=== PATIENT | female | born 1965 | race Caucasian/White ===

== ENCOUNTER 2017-11-01 04:04 | Emergency (ER) | payer OTHER ==
[2017-11-01] MEDS ORDERED: MAG HYDROX/AL HYDROX/SIMETH 30 ML UDCUP PO ONE (04:22)
[2017-11-01] MEDS ORDERED: LIDOCAINE 2% VISCOUS 15 ML UDCUP PO ONE (04:22)
--- NOTE | 2017-11-01 04:22 | EDPHY ---
H & P HPI/ROS: Chief Complaint: Chest pain HPI: 52-year-old woman woke with substernal and epigastric chest pain at 2:30 a.m. this morning. Pain at worst is about a 3 to 4/10. There been no aggravating or alleviating factors. Described as a tightness. She has never had this before. His no recent fevers or chills. No cough. No shortness of breath. No nausea or vomiting. She has not have any risk factors for coronary artery disease. She does state that she might be a have a Lucille Danlos. She has not describe a tearing sensation. Is not a severe pain. She did take an aspirin [facility] ROS: 10 point Review of Systems is negative except as noted in the HPI. Social History: No smoking, no alcohol, no recreational drug use Family History: No family history of coronary artery disease Physical Exam: Gen: Awake, Alert, No Distress HEENT: Nose: no rhinorrhea Eyes: PERRLA, EOMI Mouth: Moist mucosa Neck: Supple, no JVD Chest: nontender, lungs clear to auscultation Heart: S1, S2 normal, no murmur Abd: Soft, non-tender, no guarding Back: no CVA tenderness, no midline tenderness Ext: no edema, non-tender Skin: no rash Neuro: CN II-XII intact, Sensation grossly intact, Strength 5/5 in bilateral upper and lower extremities - Personal History Tetanus Vaccine Date: <10 YRS Constitutional: Initial Vital Signs Temperature (C) 36.9 C 11/01/17 04:19 Heart Rate 65 11/01/17 04:19 Respiratory Rate 16 11/01/17 04:19 Blood Pressure 120/83 H 11/01/17 04:19 O2 Sat (%) 98 11/01/17 04:19 O2 Delivery Mode Room Air Allergies/Adverse Reactions: Penicillins Allergy (Verified 11/04/11 12:13) generalized swelling Sulfa (Sulfonamide Antibiotics) Allergy (Verified 11/04/11 12:13) n/v Home Medications: Medication Instructions Recorded GARLAND GILBERT 05/10/11 Medical Decision Making - Diagnostics EKG Interpretation: ECG time 4:16 a.m., sinus rhythm with a rate of 55, normal axis, normal intervals, no acute ST or T-wave changes. Impression: Normal ECG. Imaging Results: Chest x-ray is negative per my interpretation. Imaging: I viewed and interpreted images myself ED Course/Re-evaluation: 52-year-old woman presenting with substernal chest pain which woke her this morning. ECG is negative. Troponin is negative. Chest x-ray is negative. She is still having 3/10 pain with no relief from a GI cocktail or nitroglycerin. She is refusing morphine or other narcotics at this time. Will admit for low risk chest pain rule out and serial troponins. - Data Points Laboratory Results: Laboratory Results 11/01/17 04:20 11/01/17 04:20 11/01/17 11/01/17 04:20 04:20 WBC 6.10 10^3/uL 10^3/uL (3.80-9.50) RBC 4.99 10^6/uL 10^6/uL (4.18-5.33) Hgb 14.8 g/dL g/dL (12.6-16.3) Hct 44.2 % % (38.0-47.0) MCV 88.6 fL fL (81.5-99.8) MCH 29.7 pg pg (27.9-34.1) MCHC 33.5 g/dL g/dL (32.4-36.7) RDW 12.7 % % (11.5-15.2) Plt Count 280 10^3/uL 10^3/uL (150-400) MPV 9.8 fL fL (8.7-11.7) Neut % (Auto) 39.6 % % (39.3-74.2) Lymph % (Auto) 41.3 % % (15.0-45.0) Lane % (Auto) 9.2 % % (4.5-13.0) Eos % (Auto) 8.7 % H % (0.6-7.6) Baso % (Auto) 1.0 % % (0.3-1.7) Nucleat RBC Rel Count 0.0 % % (0.0-0.2) Absolute Neuts (auto) 2.42 10^3/uL 10^3/uL (1.70-6.50) Absolute Lymphs (auto) 2.52 10^3/uL 10^3/uL (1.00-3.00) Absolute Monos (auto) 0.56 10^3/uL 10^3/uL (0.30-0.80) Absolute Eos (auto) 0.53 10^3/uL H 10^3/uL (0.03-0.40) Absolute Basos (auto) 0.06 10^3/uL 10^3/uL (0.02-0.10) Absolute Nucleated RBC 0.00 10^3/uL 10^3/uL (0-0.01) Immature Gran % 0.2 % % (0.0-1.1) Immature Gran # 0.01 10^3/uL 10^3/uL (0.00-0.10) Sodium 142 mEq/L mEq/L (135-145) Potassium 4.3 mEq/L mEq/L (3.5-5.2) Chloride 107 mEq/L mEq/L (97-110) Carbon Dioxide 25 mEq/l mEq/l (22-31) Anion Gap 10 mEq/L mEq/L (8-16) BUN 22 mg/dL mg/dL (7-23) Creatinine 0.9 mg/dL mg/dL (0.6-1.0) Estimated GFR > 60 Glucose 93 mg/dL mg/dL (70-100) Calcium 9.4 mg/dL mg/dL (8.5-10.4) Troponin I < 0.012 ng/mL ng/mL (0.000-0.034) Medications Given: Discontinued Medications Al Hydroxide/Mg Hydroxide (Maalox Susp) 30 ml PO ONCE ONE Stop: 11/01/17 04:23 Last Admin: 11/01/17 04:29 Dose: 30 ml Lidocaine (Lidocaine 2% Viscous) 15 ml PO ONCE ONE Stop: 11/01/17 04:23 Last Admin: 11/01/17 04:29 Dose: 15 ml Morphine Sulfate (Morphine) 4 mg IVP EDNOW ONE Stop: 11/01/17 05:02 Last Admin: 11/01/17 05:06 Dose: Not Given Nitroglycerin (Nitrostat) 0.4 mg SL EDNOW ONE Stop: 11/01/17 04:52 Last Admin: 11/01/17 04:53 Dose: 1 tab Departure - Departure Disposition: [facility] Acute Clinical Impression: Chest pain Condition: Fair Referrals: HARISH BRADY [Primary Care Provider] - As per Instructions
[2017-11-01 04:28] LABS: PLATELET COUNT 280 10^3/uL (150-400)
[2017-11-01] MEDS ORDERED: NITROGLYCERIN 0.4 MG BTL SL ONE (04:51)
[2017-11-01] MEDS ORDERED: ACETAMINOPHEN 325 MG TAB PO PRN (06:22)
[2017-11-01] MEDS ORDERED: ONDANSETRON 4 MG/2 ML VIAL IVP PRN (06:22)
[2017-11-01] MEDS ORDERED: diphenhydrAMINE 25 MG CAP PO PRN (06:33)
[2017-11-01] MEDS ORDERED: LORazepam 0.5 MG TAB PO PRN (06:33)
[2017-11-01] MEDS ORDERED: NS 1,000 ML IV SCH (06:45)
[2017-11-01 09:00] VITALS: BP 103/56; PULSE 63; RESP 17; TEMP 97.5; O2SAT 96
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
== END 2017-11-01 09:00 | disposition home or self-care (01) ==
LOC: UNDOADMOB 05:40
DX: R07.9 Chest pain, unspecified (principal); E03.9 Hypothyroidism, unspecified; K82.8 Other specified diseases of gallbladder
CPT/HCPCS: 71046; 99285; G0378; 84480-90; J2270

== ENCOUNTER 2018-09-04 13:38 | Emergency (ER) | payer OTHER ==
[2018-09-04] MEDS ORDERED: NS 500 ML IV ONE (14:41)
--- NOTE | 2018-09-04 14:51 | EDPHY ---
H & P Stated Complaint: Chest pain Time Seen by Provider: 09/04/18 14:36 HPI/ROS: CHIEF COMPLAINT: Chest tightness HISTORY OF PRESENT ILLNESS: The patient is a 53-year-old female who comes to the emergency department complaining of chest tightness for the last week. She reports having mononucleosis 1 month ago in feeling slightly short of breath associated with that illness. For the last week she has assumed that this was some type of post viral irritation but her symptoms do not seem to be improving. No history of cardiac disease. She does report of history of Lucille -Danlos but states that she does not have the type that causes dissections. No history of pulmonary disease. No fever. It is not worsened by exertion or food. No diaphoresis. No nausea vomiting. Severity: Moderate Modifying factors: None REVIEW OF SYSTEMS: Constitutional: denies: chills, fever, recent illness, recent injury EENTM: denies: blurred vision, double vision, nose congestion Respiratory: denies: cough, shortness of breath Cardiac: See HPI, no lightheadedness or palpitations Gastrointestinal/Abdominal: denies: abdominal pain, diarrhea, nausea, vomiting, blood streaked stools Genitourinary: denies: dysuria, frequency, hematuria, pain Musculoskeletal: denies: joint pain, muscle pain Skin: denies: lesions, rash, jaundice, bruising Neurological: denies: headache, numbness, paresthesia, tingling, dizziness, weakness Hematologic/Lymphatic: denies: blood clots, easy bleeding, easy bruising Immunologic/allergic: denies: HIV/AIDS, transplant 10 systems reviewed and negative except as noted EXAM: GENERAL: Well-appearing, well-nourished and in no acute distress. HEAD: Atraumatic, normocephalic. EYES: Pupils equal round and reactive to light, extraocular movements intact, sclera anicteric, conjunctiva are normal. ENT: TMs normal, nares patent, oropharynx clear without exudates. Moist mucous membranes. NECK: Normal range of motion, supple without lymphadenopathy or JVD. LUNGS: Breath sounds clear to auscultation bilaterally and equal. No wheezes rales or rhonchi. HEART: Regular rate and rhythm without murmurs, rubs or gallops. ABDOMEN: Soft, nontender, normoactive bowel sounds. No guarding, no rebound. No masses appreciated. BACK: No CVA tenderness, no spinal tenderness, step-offs or deformities EXTREMITIES: Normal range of motion, no pitting or edema. No clubbing or cyanosis. NEUROLOGICAL: Cranial nerves II through XII grossly intact. Normal speech, normal gait. 5/5 strength, normal movement in all extremities, normal sensation , normal reflexes PSYCH: Normal mood, normal affect. SKIN: Warm, dry, normal turgor, no visible rashes or lesions. Source: Patient Exam Limitations: No limitations - Personal History LMP (Females 10-55): IUD In Place Current Tetanus/Diphtheria Vaccine: Yes Tetanus Vaccine Date: <10 YRS - Medical/Surgical History Hx Asthma: No Hx Chronic Respiratory Disease: No Hx Diabetes: No Hx Cardiac Disease: No Hx Renal Disease: No Hx Cirrhosis: No Hx Alcoholism: No Hx HIV/AIDS: No Hx Splenectomy or Spleen Trauma: No Other PMH: Hypothyroidism, migraines - Family History Significant Family History: No pertinent family hx - Social History Smoking Status: Never smoked Alcohol Use: Sober Drug Use: None Constitutional: Initial Vital Signs Temperature (C) 36.7 C 09/04/18 13:42 Heart Rate 83 09/04/18 13:42 Respiratory Rate 18 09/04/18 13:42 Blood Pressure 116/63 09/04/18 13:42 O2 Sat (%) 98 09/04/18 13:42 O2 Delivery Mode Room Air Allergies/Adverse Reactions: Penicillins Allergy (Verified 09/04/18 13:45) generalized swelling Sulfa (Sulfonamide Antibiotics) Allergy (Verified 09/04/18 13:45) n/v Home Medications: Medication Instructions Recorded Herbals/Supplements -Info Only 1 ea PO DAILY 11/01/17 Thyroid,Pork [[place] Thyroid] 90 mg PO DAILY 11/01/17 Medical Decision Making - Diagnostics EKG Interpretation: An EKG obtained and was read and documented in trace view. Please see trace view for full reading and report. Sinus rhythm, no acute ischemic changes Imaging Results: Imaging Impressions Chest/Thorax CTA 09/04/18 14:44 Impression:. 1. No evidence of thoracic aortic dissection. 2. No evidence for pulmonary embolic disease. Leonidas Albrecht was notified of these findings by telephone at 4:12 PM on 2017 Imaging: Discussed imaging studies w/ call worker Radiologist ED Course/Re-evaluation: 4:15 p.m. the patient is doing well. She is reassured by the test results. We discussed the limitations. We engaged in shared decision making. She is eager to go home. Her troponin is negative which is reassuring in the setting of week worth of symptoms. I think that this is most likely pleurisy from having mono few weeks ago. She had he has an appointment to follow up with Cardiology next week. We discussed indications for returning. Differential Diagnosis: Partial list of the Differential diagnosis considered include but were not limited to; pleurisy, PE, dissection, acute coronary disease and although unlikely based on the history and physical exam, I also considered myocarditis, pericarditis, pneumothorax, pneumonia. I discussed these differential diagnoses and the plan with the patient as well as the usual and expected course. The patient understands that the diagnosis is provisional and that in medicine we are not always correct and that further workup is often warranted. Usual and customary warnings were given. All of the patient's questions were answered. The patient was instructed to return to the emergency department should the symptoms at all worsen or return, otherwise to followup with the physician as we discussed. - Data Points Laboratory Results: Laboratory Results 09/04/18 14:55 09/04/18 14:55 09/04/18 09/04/18 09/04/18 15:02 15:00 14:55 WBC RBC Hgb POC Hgb 15.0 gm/dL gm/dL (12.6-16.3) Hct POC Hct 44 % % (38-47) MCV MCH MCHC RDW Plt Count MPV Neut % (Auto) Lymph % (Auto) Payne % (Auto) Eos % (Auto) Baso % (Auto) Nucleat RBC Rel Count Absolute Neuts (auto) Absolute Lymphs (auto) Absolute Monos (auto) Absolute Eos (auto) Absolute Basos (auto) Absolute Nucleated RBC Immature Gran % Immature Gran # PT INR APTT D-Dimer POC Sodium 139 mEq/L mEq/L (135-145) Sodium POC Potassium 3.9 mEq/L mEq/L (3.3-5.0) Potassium POC Chloride 105 mEq/L mEq/L (97-110) Chloride Carbon Dioxide Anion Gap POC BUN 15 mg/dL mg/dL (7-23) BUN Creatinine POC Creatinine 0.7 mg/dL mg/dL (0.6-1.0) Estimated GFR Glucose POC Glucose 96 mg/dL mg/dL (70-100) Calcium Total Bilirubin Conjugated Bilirubin Unconjugated Bilirubin AST ALT Alkaline Phosphatase POC Troponin I 0.00 ng/mL ng/mL (0.00-0.08) Total Protein Albumin Lipase TSH Free T4 Beta HCG, Qual NEGATIVE 09/04/18 09/04/18 09/04/18 14:55 14:55 14:55 WBC 6.00 10^3/uL 10^3/uL (3.80-9.50) RBC 5.01 10^6/uL 10^6/uL (4.18-5.33) Hgb 14.8 g/dL g/dL (12.6-16.3) POC Hgb Hct 43.5 % % (38.0-47.0) POC Hct MCV 86.8 fL fL (81.5-99.8) MCH 29.5 pg pg (27.9-34.1) MCHC 34.0 g/dL g/dL (32.4-36.7) RDW 11.9 % % (11.5-15.2) Plt Count 264 10^3/uL 10^3/uL (150-400) MPV 9.6 fL fL (8.7-11.7) Neut % (Auto) 63.4 % % (39.3-74.2) Lymph % (Auto) 22.7 % % (15.0-45.0) Payne % (Auto) 8.0 % % (4.5-13.0) Eos % (Auto) 5.2 % % (0.6-7.6) Baso % (Auto) 0.5 % % (0.3-1.7) Nucleat RBC Rel Count 0.0 % % (0.0-0.2) Absolute Neuts (auto) 3.81 10^3/uL 10^3/uL (1.70-6.50) Absolute Lymphs (auto) 1.36 10^3/uL 10^3/uL (1.00-3.00) Absolute Monos (auto) 0.48 10^3/uL 10^3/uL (0.30-0.80) Absolute Eos (auto) 0.31 10^3/uL 10^3/uL (0.03-0.40) Absolute Basos (auto) 0.03 10^3/uL 10^3/uL (0.02-0.10) Absolute Nucleated RBC 0.00 10^3/uL 10^3/uL (0-0.01) Immature Gran % 0.2 % % (0.0-1.1) Immature Gran # 0.01 10^3/uL 10^3/uL (0.00-0.10) PT 13.2 SEC SEC (12.0-15.0) INR 0.98 (0.83-1.16) APTT 27.5 SEC SEC (23.0-38.0) D-Dimer < 0.27 ug/mLFEU ug/mLFEU (0.00-0.50) POC Sodium Sodium 137 mEq/L mEq/L (135-145) POC Potassium Potassium 4.2 mEq/L mEq/L (3.5-5.2) POC Chloride Chloride 106 mEq/L mEq/L (97-110) Carbon Dioxide 23 mEq/l mEq/l (22-31) Anion Gap 8 mEq/L mEq/L (6-14) POC BUN BUN 16 mg/dL mg/dL (7-23) Creatinine 0.8 mg/dL mg/dL (0.6-1.0) POC Creatinine Estimated GFR > 60 Glucose 95 mg/dL mg/dL (70-100) POC Glucose Calcium 9.2 mg/dL mg/dL (8.5-10.4) Total Bilirubin 0.7 mg/dL mg/dL (0.1-1.4) Conjugated Bilirubin 0.2 mg/dL mg/dL (0.0-0.5) Unconjugated Bilirubin 0.5 mg/dL mg/dL (0.0-1.1) AST 24 IU/L IU/L (14-46) ALT 28 IU/L IU/L (9-52) Alkaline Phosphatase 63 IU/L IU/L (38-126) POC Troponin I Total Protein 7.0 g/dL g/dL (6.3-8.2) Albumin 4.1 g/dL g/dL (3.5-5.0) Lipase 118 IU/L IU/L (23-300) TSH 0.051 uIU/mL L uIU/mL (0.465-4.680) Free T4 0.88 ng/dL ng/dL (0.59-2.19) Beta HCG, Qual Medications Given: Discontinued Medications Sodium Chloride (Ns) 500 mls @ 0 mls/hr IV EDNOW ONE; Wide Open PRN Reason: Protocol Stop: 09/04/18 14:42 Last Admin: 09/04/18 15:24 Dose: 500 mls Point of Care Test Results: Chemistry 09/04/18 09/04/18 15:02 15:00 POC Sodium 139 mEq/L mEq/L (135-145) POC Potassium 3.9 mEq/L mEq/L (3.3-5.0) POC Chloride 105 mEq/L mEq/L (97-110) POC BUN 15 mg/dL mg/dL (7-23) POC Creatinine 0.7 mg/dL mg/dL (0.6-1.0) POC Glucose 96 mg/dL mg/dL (70-100) POC Troponin I 0.00 ng/mL ng/mL (0.00-0.08) ISTAT H&H 09/04/18 15:02 POC Hgb 15.0 gm/dL gm/dL (12.6-16.3) POC Hct 44 % % (38-47) Departure - Departure Disposition: Home, Routine, Self-Care Clinical Impression: Chest pain Qualifiers: Chest pain type: unspecified Qualified Code(s): R07.9 - Chest pain, unspecified Condition: Fair Instructions: Chest Pain (ED) Additional Instructions: Follow-up with Dr. Rao next week as planned. Return to the ER if your symptoms worsen. Referrals: HARISH BRADY [Primary Care Provider] - As per Instructions Rah Rao MD [Medical Doctor] - As per Instructions
--- NOTE | 2018-09-04 14:51 | CPEKG ---
Test Reason : OPEN Blood Pressure : / mmHG Vent. Rate : 059 BPM Atrial Rate : 058 BPM P-R Int : 129 ms QRS Dur : 085 ms QT Int : 417 ms P-R-T Axes : 055 081 066 degrees QTc Int : 414 ms Sinus rhythm Confirmed by Leonidas Albrecht ([id number]) on 09/04/2018 2:50:49 PM Referred By: Confirmed By:Leonidas Albrecht
[2018-09-04 15:06] LABS: PLATELET COUNT 264 10^3/uL (150-400)
[2018-09-04 15:13] LABS: INR 0.98 (0.83-1.16); PROTIME(PATIENT) 13.2 SEC (12.0-15.0)
[2018-09-04] MEDS ORDERED: IOPAMIDOL (ISOVUE 370) 100 ML BTL IV ONE (15:25)
[2018-09-04 16:34] VITALS: BP 120/75
== END 2018-09-04 16:33 | disposition home or self-care (01) ==
DX: R07.9 Chest pain, unspecified (principal); E86.9 Volume depletion, unspecified
CPT/HCPCS: 82435-PO; 82565-PO; 82947-PO; 84132-PO; 84295-PO; 84484-PO; 84520-PO; 85014-PO; Q9967

== ENCOUNTER 2018-11-28 10:46 | Emergency (ER) | payer OTHER ==
--- NOTE | 2018-11-28 11:48 | EDPHY ---
H & P Stated Complaint: stood up -hit head on bar-- lac -no loc Time Seen by Provider: 11/28/18 11:48 HPI/ROS: HPI: This is a 53-year-old female who presents with Chief Complaint: stood up -hit head on bar-- lac -no loc Location: Head Quality: Injury Duration: 1 hr prior to arrival Signs and Symptoms: no fever, + nausea, no vomiting, no photophobia, no noise sensitivity, no neck stiffness, no ear pain, no tinnitus, no nasal congestion, no sinus pressure, no weakness, no radiation, no aura Timing: Rapid onset Severity: Moderate Context: Patient reports that she stood up and accidentally hit the top of her head on a metal bar. This accidental injury occurred approximately 1 hr prior to arrival. Denies LOC/head injury/neck pain/vomiting/amnesia. She reports that she has an abrasion in the area of injury but no active bleeding. She is complaining of chills and fatigue. She reports that she "does not feel right." She has nausea but no vomiting. at bedside reports behaving at baseline. Does not take blood thinners. Reports increased dizziness with ambulating. Modifying Factors: Ibuprofen Comment: ROS: A comprehensive 10 system review of systems is otherwise negative aside from elements mentioned in the history of present illness. MEDICAL/SURGICAL/SOCIAL HISTORY: Medical history: Hypothyroidism, migraine headache Surgical history: Denies Social history: . Never smoked. Denies drug use. Family history noncontributory. CONSTITUTIONAL: Well-developed, well-nourished, middle-aged white female, curled up under blanket. awake and alert, no obvious distress HEENT: Superficial abrasion approximately 3 in vertical on frontal scalp near hairline-no active bleeding and normocephalic. NECK: supple, no midline tenderness, flexion 45 degrees, extension 45 degrees, right and left lateral flexion 45 degrees. No meningismus. Cardiovascular: Normal S1/S2, regular rate, regular rhythm, without murmur rub or gallop. PULMONARY/CHEST: Symmetrical and nontender. Clear to auscultation bilaterally. Good air movement. No accessory muscle usage. ABDOMEN: Soft, nondistended, nontender. EXTREMITIES: 2/2 pulses, strength 5/5, no deformities, no clubbing, no cyanosis or edema. NEUROLOGICAL: no focal neuro deficits. GCS 15. Light touch sensation intact. Cranial nerves 2-12 grossly intact. Speech clear. SKIN: Warm and dry, no erythema. no rash. Good capillary refill. Source: Patient Exam Limitations: No limitations - Personal History Current Tetanus/Diphtheria Vaccine: Yes Current Tetanus Diphtheria and Acellular Pertussis (TDAP): Yes Tetanus Vaccine Date: 2013 - Medical/Surgical History Hx Asthma: No Hx Chronic Respiratory Disease: No Hx Diabetes: No Hx Cardiac Disease: No Hx Renal Disease: No Hx Cirrhosis: No Hx Alcoholism: No Hx HIV/AIDS: No Hx Splenectomy or Spleen Trauma: No Other PMH: Hypothyroidism, migraines - Social History Smoking Status: Never smoked Constitutional: Initial Vital Signs Temperature (C) 36.0 C 11/28/18 10:50 Heart Rate 78 11/28/18 10:50 Respiratory Rate 18 11/28/18 10:50 Blood Pressure 123/66 H 11/28/18 10:50 O2 Sat (%) 97 11/28/18 10:50 O2 Delivery Mode Room Air Allergies/Adverse Reactions: Penicillins Allergy (Verified 09/04/18 13:45) generalized swelling Sulfa (Sulfonamide Antibiotics) Allergy (Verified 09/04/18 13:45) n/v Home Medications: Medication Instructions Recorded Herbals/Supplements -Info Only 1 ea PO DAILY 11/01/17 Thyroid,Pork [Emmalena Thyroid] 90 mg PO DAILY 11/01/17 Ondansetron Odt [Zofran Odt 4 mg 4 mg PO Q4 PRN #12 tab 11/28/18 (*)] Medical Decision Making - Diagnostics Imaging Results: Imaging Impressions Head CT 11/28/18 11:51 Impression: Tiny right basal ganglia hemorrhage versus asymmetric calcification. Results discussed with Etelvina Samson at 12:37 PM. General information for patients regarding this examination can be found at [email or web address]. If you have questions or comments about this report, please contact me at [phone](hospital) or [phone] (cell). ED Course/Re-evaluation: Signs reviewed and stable upon arrival. Patient has nausea, delayed mentation, chills and head CT scan ordered 1239: Called by Radiology, Dr. Lange, who reports that there is a tiny curvilinear density right basal ganglial that could be a calcification versus hemorrhage. 1245: ED decision to consult Neurosurgery. Spoke with Dr. Subramanian who reviewed films and advised observation in the emergency room for total of 4 hr and if remains neurologically stable discharge home with outpatient follow-up. He does not believe that this is a hemorrhage. 1515: Reassessed patient who reports moderate relief of symptoms. Denies loss of consciousness, mental status changes, nausea, vomiting, amnesia, word- finding difficulties, headache. Abrasion is superficial; no sutures indicated. Advised supportive care. This patient was seen under the supervision of my secondary supervising physician. I evaluated care for this patient with attending. Discussed this patient with Dr. Daily. Differential Diagnosis: Head injury including but not limited to concussion, skull fracture, intraparenchymal contusion, subarachnoid, subdural and epidural hematoma. - Data Points Medications Given: Discontinued Medications Ondansetron HCl (Zofran Odt) 4 mg PO EDNOW ONE Stop: 11/28/18 11:58 Last Admin: 11/28/18 12:01 Dose: 4 mg Departure - Departure Disposition: Home, Routine, Self-Care Clinical Impression: Abrasion of scalp without infection Head injury, closed, with concussion Qualifiers: Encounter type: initial encounter Loss of consciousness presence/duration: without LOC Qualified Code(s): S06.0X0A - Concussion without loss of consciousness, initial encounter Condition: Good Instructions: Concussion (ED), Head Injury (ED), Abrasion (ED) Additional Instructions: You sustained a closed head injury and mild concussion and it is recommended that you observe concussion precautions. Please do not participate in any contact sports or moderate and strenuous activity until all symptoms have resolved or cleared by PCP/Concussion Clinic. Take Tylenol 650 mg every 4 hours and/or Ibuprofen 600 mg every 8 hours with food as needed for pain/headache. Take Zofran every 4-6 hours as needed for nausea, vomiting. Consume a minimum of 8-10 glasses of water or electrolyte fluid replacement drinks that include Gatorade, Powerade, Pedialyte. You are to be closely monitored and observed for the 12 hr following initial injury time. Please follow-up with Neurosurgery in 3-5 days. If symptoms last longer than 2 weeks, please follow-up with Dr. Davis in the concussion Clinic. Return to the ER immediately if you have progressive headaches, neurologic deficits, gait abnormality, visual disturbance, slurred speech, or any other symptom that concerns you. Referrals: Cass Davis MD [Medical Doctor] - As per Instructions Lenin Subramanian MD [Medical Doctor] - As per Instructions Prescriptions: Ondansetron Odt [Zofran Odt 4 mg (*)] 4 mg PO Q4 PRN #12 tab PRN Reason: Nausea/Vomiting, Use 1st
[2018-11-28] MEDS ORDERED: ONDANSETRON DISINTEGRATING 4 MG TAB PO ONE (11:57)
[2018-11-28 15:26] VITALS: BP 114/64
== END 2018-11-28 15:27 | disposition home or self-care (01) ==
DX: S00.01XA Abrasion of scalp, initial encounter (principal); S06.0X0A Concussion without loss of consciousness, initial encounter; E03.9 Hypothyroidism, unspecified; W22.8XXA Striking against or struck by other objects, initial encounter